=== PATIENT | male | born 1995 | race Caucasian/White ===

== ENCOUNTER 2018-02-18 16:19 | Emergency (ER) | payer SELFPAY ==
[~2018-02-18] VITALS: Ht 182.9 cm; Wt 106.6 kg
[2018-02-18] MEDS ORDERED: ALBUTEROL/IPRATROPIUM 3 ML NEB NEB ONE (17:00)
--- NOTE | 2018-02-18 18:14 | Diagnostic Imaging Report ---
EXAMINATION: CHEST 2 VIEWS INDICATION: Cough, fever, rule out pneumonia COMPARISON: 04/02/2010. FINDINGS: TUBES and LINES: None. LUNGS: Peribronchial thickening bilaterally. Mild bilateral hyperinflation. There is no evidence of pneumonia or pulmonary edema. PLEURA: No pleural effusion or pneumothorax. HEART AND MEDIASTINUM: The cardiomediastinal silhouette is unremarkable. BONES AND SOFT TISSUES: No acute osseous lesion. UPPER ABDOMEN: No free air under the diaphragm. IMPRESSION: Mild viral infection versus reactive airway disease. Signed by: Dr. Rob Guevara M.D. on 02/18/2018 6:11 PM
[2018-02-18 19:20] VITALS: BP 121/78
== END 2018-02-18 19:19 | disposition home or self-care (01) ==
LOC: ER 16:19
DX: R50.9 Fever, unspecified (principal); R05 Cough; J41.1 Mucopurulent chronic bronchitis; J02.9 Acute pharyngitis, unspecified
CPT/HCPCS: 71046; 94640; 99283